=== PATIENT | male | born 1995 | race African-American/Black ===

== ENCOUNTER 2021-12-18 14:35 | Emergency (ER) | payer MEDICAID ==
[~2021-12-18] VITALS: Ht 182.9 cm; Wt 101.0 kg
[2021-12-18 15:57] LABS: BASOPHILS % 0.5 % (0.0-2.0); EOSINOPHILS % 1.4 % (0.0-5.0); HEMOGLOBIN. 13.1 g/dL (14.0-18.0); LYMPHOCYTES % 26.9 % (20.0-50.0); MEAN CORPUSCULAR HEMOGLOBIN 27.4 pg (28.0-32.0); MEAN CORPUSCULAR VOLUME 83.8 fL (80.0-94.0); MEAN PLATELET VOLUME 8.2 fl (7.4-10.4); MONOCYTES % 8.2 % (2.0-8.0); PLATELET 316 x1000/uL (130-400); RED BLOOD CELL COUNT 4.77 mill/uL (4.7-6.1); RED CELL DISTRIBUTION WIDTH 14.1 % (11.6-14.6)
[2021-12-18 15:59] LABS: CHLORIDE 104 mEq/L (98-107)
[2021-12-18] MEDS ORDERED: HALOPERIDOL LACTATE 5MG/ML VIAL IM ONE (20:15)
[2021-12-18 21:05] VITALS: BP 136/73
== END 2021-12-18 21:58 ==
LOC: ER 14:54
DX: R46.2 Strange and inexplicable behavior (principal); I49.9 Cardiac arrhythmia, unspecified
CPT/HCPCS: 36415; 71045; 80053; 84484; 85025; 93005; 96372; 99285; J1630